=== PATIENT | female | born 1995 | race African-American/Black ===

== ENCOUNTER 2020-07-17 01:53 | Emergency (ER) | payer MEDICAID ==
[~2020-07-17] VITALS: Ht 154.9 cm; Wt 91.0 kg
[2020-07-17 01:55] VITALS: BP 114/74
[2020-07-17] MEDS ORDERED: SILVER SULFADIAZINE 1% CREAM 25GM TOP ONE (02:30)
[2020-07-17] MEDS ORDERED: ACETAMINOPHEN 500MG TABLET PO ONE (02:30)
[2020-07-17] MEDS ORDERED: SILV50CR31 TP (02:44)
[2020-07-17] MEDS ORDERED: IBUP-2029 MT (02:44)
== END 2020-07-17 03:13 | disposition home or self-care (01) ==
LOC: ER 01:53
DX: T23.102A Burn of first degree of left hand, unspecified site, initial encounter (principal); T31.0 Burns involving less than 10% of body surface; T79.9XXA Unspecified early complication of trauma, initial encounter
CPT/HCPCS: 16000; 99284

== ENCOUNTER 2021-03-20 13:02 | Emergency (ER) | payer MEDICAID, OTHER ==
[~2021-03-20] VITALS: Ht 167.6 cm; Wt 65.0 kg
[~2021-03-20 13:02] MED LIST: IBUP-2029 MT; SILV50CR31 TP
[2021-03-20 13:03] VITALS: BP 130/85
[2021-03-20] MEDS ORDERED: SODIUM CHLORIDE 0.9% 1,000 ML IV ONE (15:30)
[2021-03-20] MEDS ORDERED: ACETAMINOPHEN 325MG TABLET PO ONE (15:30)
[2021-03-20 15:55] LABS: BASOPHILS % 1.1 % (0.0-2.0); EOSINOPHILS % 0.2 % (0.0-5.0); HEMATOCRIT. 40.1 % (36.0-48.0); HEMOGLOBIN. 13.2 g/dL (12.0-16.0); LYMPHOCYTES % 28.3 % (20.0-50.0); MEAN CORPUSCULAR HEMOGLOBIN 30.2 pg (28.0-32.0); MEAN CORPUSCULAR VOLUME 91.8 fL (81.0-99.0); MEAN PLATELET VOLUME 8.9 fl (7.4-10.4); MONOCYTES % 4.9 % (2.0-8.0); NEUTROPHILS % 65.5 % (40.0-76.0); PLATELET 280 x1000/uL (130-400); RED BLOOD CELL COUNT 4.37 mill/uL (4.2-5.4); RED CELL DISTRIBUTION WIDTH 13.8 % (11.6-14.6)
[2021-03-20 16:00] LABS: CHLORIDE 107 mEq/L (98-107)
[2021-03-20 16:38] LABS: B-HCG QUANTITATIVE < 1 mIU/mL (<3)
[2021-03-20 17:23] LABS: CLARITY URINE CLEAR (CLEAR); COLOR URINE YELLOW (YELLOW); KETONES URINE TRACE (NEGATIVE); LEUKOCYTE ESTERASE URINE TRACE (NEGATIVE); NITRITE URINE NEGATIVE (NEGATIVE); OCCULT BLOOD URINE 3+ (NEGATIVE); PROTEIN URINE TRACE (NEGATIVE); SPECIFIC GRAVITY URINE 1.029 (1.005-1.030); UROBILINOGEN URINE 0.2 E.U./dL (0.2-1.0)
[2021-03-20 17:37] LABS: *AMPHETAMINES SCREEN URINE NEGATIVE (NEGATIVE); *BARBITURATES SCREEN URINE NEGATIVE (NEGATIVE); *BENZODIAZEPINES SCREEN URINE NEGATIVE (NEGATIVE); *COCAINE SCREEN URINE NEGATIVE (NEGATIVE); METHADONE URINE SCREEN NEGATIVE (NEGATIVE); OPIATES URINE SCREEN NEGATIVE (NEGATIVE)
[2021-03-20 17:38] LABS: PHENCYCLIDINE URINE SCREEN NEGATIVE (NEGATIVE)
[2021-03-20] MEDS ORDERED: IOHEXOL-300 100 ML BOTTLE ONE (17:41)
[2021-03-20 17:46] LABS: CANNABINOID URINE SCREEN PRESUMTIVE POSITIVE (NEGATIVE)
[2021-03-20] MEDS ORDERED: NITR-87 MT (18:00)
[2021-03-20] MEDS ORDERED: IBUP-2028 MT (18:01)
== END 2021-03-20 18:21 | disposition home or self-care (01) ==
LOC: ER 13:12
DX: R10.31 Right lower quadrant pain (principal); N93.9 Abnormal uterine and vaginal bleeding, unspecified; Z87.59 Personal history of other complications of pregnancy, childbirth and the puerperium
CPT/HCPCS: 36415; 74177; 76830; 76856; 80053; 80305; 81003; 81025; 83690; 84702; 85025; 99285; J7030; Q9967